=== PATIENT | female | born 1960 | race Caucasian/White ===

== ENCOUNTER → 2017-06-26 | Outpatient (CLI) | payer OTHER ==
[~2017-06-26] MED LIST: BIOT50005 PO; HYDR-3580 PO; MELO15TA2 PO; METHTAB PO; NEPHRO PO; SUMA50 PO; TOPI200 PO; [UNRECOGNIZED DRUG - CODE] PO
[2017-07-01 19:54] LABS: CRYOCRIT NONE DETECTED (NONE DETECTED)
== END ==
LOC: CLAB 09:36
PROVIDERS: ATTEND Specialist
DX: B18.2 Chronic viral hepatitis C (principal); R94.5 Abnormal results of liver function studies; R74.8 Abnormal levels of other serum enzymes; Z79.899 Other long term (current) drug therapy
CPT/HCPCS: 36415; 82140; 82595

== ENCOUNTER 2017-08-23 13:33 | Emergency (ER) | payer OTHER ==
[~2017-08-23] VITALS: Ht 165.1 cm; Wt 71.8 kg
[2017-08-23] MEDS ORDERED: TETRACAINE 0.5% OPTH SOLN 2 ML BTL EACH EYE ONE (15:30)
--- NOTE | 2017-08-23 15:35 | PD ---
HPI Chief Complaint: Exposure to Blood/Body Fluids Time Seen by Provider: 15:22 Travel History International Travel<30 days: No Contact w/Intl Traveler<30days: No Traveled to known affect area: No History of Present Illness HPI while in the OR of an intraabdominal irrigation, patient accidentally got splashed on face (protected by mask and glasses), patient immediately scrubbed out, irrigated eyes, cleaned face with soap and water as well as hibiclens, cleaned glasses off with alcohol. patient is otherwise at baseline. here per exposure protocol all:see above pmhx:hep c otherwise healthy (will be starting treatment for hep c) PFSH Past Medical History Cancer: Yes (CERVICAL) Cardiovascular Problems: No Diabetes: No Diminished Hearing: No Glaucoma: No Genitourinary: Yes (INCONTINENCE) Headaches: Yes (migraine) Hepatitis: Yes (TYPE C) Hiatal Hernia: No Hypertension: No Musculoskeletal: Yes (CHRONIC BACK PAIN) Respiratory: Yes (ASTHMA YOUTH) Migraines: Yes Tetanus Vaccination: < 5 Years Influenza Vaccination: Yes Menopausal: Yes Past Surgical History Genitourinary Surgery: Yes (BLADDER SLING) Gynecologic Surgery: Yes (TVH, D & C, CERVICAL BX) Hysterectomy: Yes Pacemaker: No Other Surgery: Yes Social History Alcohol Use: Yes (BEER OCCASIONALLY ) Tobacco Use: No Substance Use: No Allergies-Medications (Allergen,Severity, Reaction): Coded Allergies: clarithromycin (Unverified Allergy, Severe, THRUSH, 03/26/17) fluconazole (Unverified Allergy, Severe, HIVES, 03/26/17) latex (Unverified Allergy, Severe, 03/26/17) morphine (Unverified Allergy, Severe, RASH, 03/26/17) Uncoded Allergies: CANOLA OIL (Allergy, Severe, 09/28/15) Reported Meds & Prescriptions Reported Meds & Active Scripts Active Reported Nephro-Elsa Rx (Vitamin B Complex/Vit C/Folic Acid) 1 Cap Tab 1 Cap PO DAILY Mobic (Meloxicam) 15 Mg Tab 15 Mg PO DAILY Hydrocodone/Acetaminophen 7.5 mg/325 mg 7.5 Mg/325 Mg Tab 1 Tab PO DIRECTED PRN Imitrex 50 Mg Tab (Sumatriptan Succinate) 50 Mg Tab 50 Mg PO TID Gelatin 650 Mg Cap 2 Cap PO DAILY Biotin 5,000 Mcg Cap 1 Tab PO DAILY Estratest (Estrogens Conjugated/Methyltestost) 1 Tab Tab 1 Tab PO DAILY Topamax (Topiramate) 200 Mg Tab 200 Mg PO DAILY Review of Systems Except as stated in HPI: all other systems reviewed are Neg General / Constitutional: No: Fever Eyes: No: Visual changes HENT: No: Headaches Cardiovascular: No: Chest Pain or Discomfort Respiratory: No: Shortness of Breath Gastrointestinal: No: Abdominal Pain Genitourinary: No: Dysuria Musculoskeletal: No: Pain Skin: No Rash Neurologic: No: Weakness Psychiatric: No: Depression Endocrine: No: Polydipsia Hematologic/Lymphatic: No: Easy Bruising Physical Exam Narrative GENERAL: SKIN: Warm and dry. HEAD: Atraumatic. Normocephalic. EYES: Pupils equal and round. No scleral icterus. No injection or drainage. ENT: No nasal bleeding or discharge. Mucous membranes pink and moist. NECK: Trachea midline. No JVD. CARDIOVASCULAR: Regular rate and rhythm. RESPIRATORY: No accessory muscle use. Clear to auscultation. Breath sounds equal bilaterally. GASTROINTESTINAL: Abdomen soft, non-tender, nondistended. MUSCULOSKELETAL: Extremities without clubbing, cyanosis, or edema. No obvious deformities. NEUROLOGICAL: Awake and alert. No obvious cranial nerve deficits. Motor grossly within normal limits. Five out of 5 muscle strength in the arms and legs. Normal speech. PSYCHIATRIC: Appropriate mood and affect; insight and judgment normal. Data Data Last Documented VS Vital Signs Date Time Temp Pulse Resp B/P (MAP) Pulse Ox O2 Delivery O2 Flow Rate FiO2 08/23/17 15:00 18 Orders Orders Tetracaine 0.5% Opht Soln (Pontocaine 0. (08/23/17 15:30) Complete Blood Count With Diff (08/23/17 16:21) Comprehensive Metabolic Panel (08/23/17 16:21) Amylase (08/23/17 16:21) Tetracaine 0.5% Opth Soln (Tetracaine 0. (08/23/17 17:15) Lipase (08/23/17 16:10) Ed Discharge Order (08/23/17 18:09) Labs Laboratory Tests Test 08/23/17 16:10 White Blood Count 4.7 TH/MM3 Red Blood Count 4.90 MIL/MM3 Hemoglobin 14.4 GM/DL Hematocrit 42.7 % Mean Corpuscular Volume 87.2 FL Mean Corpuscular Hemoglobin 29.5 PG Mean Corpuscular Hemoglobin Concent 33.8 % Red Cell Distribution Width 12.9 % Platelet Count 225 TH/MM3 Mean Platelet Volume 6.8 FL Neutrophils (%) (Auto) 48.6 % Lymphocytes (%) (Auto) 39.6 % Monocytes (%) (Auto) 7.8 % Eosinophils (%) (Auto) 3.4 % Basophils (%) (Auto) 0.6 % Neutrophils # (Auto) 2.3 TH/MM3 Lymphocytes # (Auto) 1.8 TH/MM3 Monocytes # (Auto) 0.4 TH/MM3 Eosinophils # (Auto) 0.2 TH/MM3 Basophils # (Auto) 0.0 TH/MM3 CBC Comment DIFF FINAL Differential Comment Blood Urea Nitrogen 14 MG/DL Creatinine 1.07 MG/DL Random Glucose 67 MG/DL Total Protein 7.4 GM/DL Albumin 3.8 GM/DL Calcium Level 8.2 MG/DL Alkaline Phosphatase 77 U/L Aspartate Amino Transf (AST/SGOT) 53 U/L Alanine Aminotransferase (ALT/SGPT) 112 U/L Total Bilirubin 0.4 MG/DL Sodium Level 143 MEQ/L Potassium Level 3.6 MEQ/L Chloride Level 113 MEQ/L Carbon Dioxide Level 25.2 MEQ/L Anion Gap 5 MEQ/L Estimat Glomerular Filtration Rate 53 ML/MIN Amylase Level 129 U/L Lipase 215 U/L MDM Medical Decision Making Medical Screen Exam Complete: Yes Emergency Medical Condition: Yes Medical Record Reviewed: Yes Differential Diagnosis N/A Narrative Course POST EXPOSURE WITH PARTIAL SPLASH OF FLUIDS TO EYES, NORMALLY IF SOURCE IS NEG RAPID HIV THEN NO PEP PROPHYLAXIS. 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
[2017-08-23 17:04] LABS: AUTOMATED NEUTROPHIL # 2.3 TH/MM3 (1.8-7.7); BASOPHIL % 0.6 % (0.0-2.0); EOSINOPHIL # 0.2 TH/MM3 (0-0.4); EOSINOPHIL % 3.4 % (0.0-4.0); HEMATOCRIT 42.7 % (35.0-46.0); HEMOGLOBIN 14.4 GM/DL (11.6-15.3); LYMPH % 39.6 % (9.0-44.0); LYMPHOCYTE # 1.8 TH/MM3 (1.0-4.8); MEAN CELL VOLUME 87.2 FL (80.0-100.0); MEAN CORPUSCULAR HEMOGLOBIN 29.5 PG (27.0-34.0); MEAN CORPUSCULAR HGB CONC 33.8 % (32.0-36.0); MEAN PLATELET VOLUME 6.8 FL (7.0-11.0); MONO % 7.8 % (0.0-8.0); MONOCYTE # 0.4 TH/MM3 (0-0.9); NEUT % 48.6 % (16.0-70.0); PLATELET COUNT 225 TH/MM3 (150-450); RED CELL DISTRIBUTION WIDTH 12.9 % (11.6-17.2); WHITE BLOOD COUNT 4.7 TH/MM3 (4.0-11.0)
[2017-08-23] MEDS ORDERED: TETRACAINE 0.5% OPTH SOLN 4 ML BTL EACH EYE ONE (17:15)
[2017-08-23 17:29] LABS: ALBUMIN 3.8 GM/DL (3.4-5.0); ALT (GPT) 112 U/L (10-53); AST (GOT) 53 U/L (15-37); BICARBONATE 25.2 MEQ/L (21.0-32.0); BLOOD UREA NITROGEN 14 MG/DL (7-18); CALCIUM 8.2 MG/DL (8.5-10.1); CHLORIDE 113 MEQ/L (98-107); CREATININE 1.07 MG/DL (0.50-1.00); GLOMERULAR FILTRATION RATE 53 ML/MIN (>89); GLUCOSE,RANDOM 67 MG/DL (74-106); SODIUM (NA) 143 MEQ/L (136-145)
[2017-08-23 17:32] LABS: ALKALINE PHOSPHATASE 77 U/L (45-117); TOTAL BILIRUBIN ADULT 0.4 MG/DL (0.2-1.0); TOTAL PROTEIN 7.4 GM/DL (6.4-8.2)
[2017-08-23 17:34] LABS: AMYLASE 129 U/L (25-115)
[2017-08-23 17:40] LABS: LIPASE 215 U/L (73-393)
== END 2017-08-23 18:34 | disposition home or self-care (01) ==
LOC: NEPD 13:33
DX: B19.20 Unspecified viral hepatitis C without hepatic coma (principal); Z77.21 Contact with and (suspected) exposure to potentially hazardous body fluids
CPT/HCPCS: 80053; 82150; 83690; 85025; 99283